=== PATIENT | female | born 1995 | race Caucasian/White ===

== ENCOUNTER 2017-10-15 19:42 | Emergency (ER) | payer OTHER ==
[~2017-10-15] VITALS: Ht 162.6 cm; Wt 56.7 kg
[2017-10-15 19:46] VITALS: Ht 162.6 cm; Wt 56.7 kg
[2017-10-15 23:04] VITALS: BP 101/59
== END 2017-10-15 23:04 | disposition home or self-care (01) ==
LOC: ED 19:42
DX: F10.129 Alcohol abuse with intoxication, unspecified (principal)
CPT/HCPCS: J0780; J7030